=== PATIENT | male | born 1960 | race Two or more races ===

== ENCOUNTER 2023-01-25 09:00 | Inpatient (IN) | payer OTHER ==
[~2023-01-25] VITALS: Ht 180.3 cm; Wt 108.9 kg
[2023-01-25] MEDS ORDERED: [UNRECOGNIZED DRUG - CODE] PO (12:48)
[2023-01-25] MEDS ORDERED: NEXIUM20 M1 PO (12:48)
[2023-01-25] MEDS ORDERED: [UNRECOGNIZED DRUG - OTHER] PO (12:49)
[2023-01-25] MEDS ORDERED: PAXIL40 MG PO (12:49)
[2023-01-25] MEDS ORDERED: TRAZODONE HCL150 MG PO (12:50)
[2023-01-25] MEDS ORDERED: XALATAN (12:51)
[2023-01-25] MEDS ORDERED: GABA PO (12:51)
[2023-02-01] MEDS ORDERED: GABAPENTIN800 M1 (13:03)
[2023-02-01] MEDS ORDERED: DIAZEPAM10 MG (13:03)
[2023-02-01] MEDS ORDERED: AMLODIPINE BESY10 MG (13:04)
[2023-02-01] MEDS ORDERED: HYDRALAZINE HCL25 MG (13:06)
[2023-02-01] MEDS ORDERED: XELPROS2.5 ML (13:07)
== END 2023-02-07 16:06 | disposition home or self-care (01) | DRG 330 ==
LOC: O/R 01-30 08:28 → SURG 01-30 08:28 → SURH 01-30 09:00 → EDBD 01-30 09:00 → SURH 01-30 18:00 → SURG 01-30 20:19 → SURH 02-01 15:03
PROVIDERS: ADMIT Colon & Rectal Surgery; ATTEND Colon & Rectal Surgery
PROC: 0DBP4ZZ Excision of Rectum, Percutaneous Endoscopic Approach (ICD-10-PCS; 2023-01-30)
PROC: 0WQF4ZZ Repair Abdominal Wall, Percutaneous Endoscopic Approach (ICD-10-PCS; 2023-01-30)
PROC: 0DQN4ZZ Repair Sigmoid Colon, Percutaneous Endoscopic Approach (ICD-10-PCS; 2023-01-30)
PROC: 0DJD8ZZ Inspection of Lower Intestinal Tract, Via Natural or Artificial Opening Endoscopic (ICD-10-PCS; 2023-01-30)
PROC: 3E0F7SF Introduction of Other Gas into Respiratory Tract, Via Natural or Artificial Opening (ICD-10-PCS; 2023-01-30)
PROC: 0DTN4ZZ Resection of Sigmoid Colon, Percutaneous Endoscopic Approach (ICD-10-PCS; principal; 2023-01-30 18:00)
PROC: 4A12X4Z Monitoring of Cardiac Electrical Activity, External Approach (ICD-10-PCS; 2023-01-31)
PROC: 30233N1 Transfusion of Nonautologous Red Blood Cells into Peripheral Vein, Percutaneous Approach (ICD-10-PCS; 2023-02-01)
DX: K57.20 Diverticulitis of large intestine with perforation and abscess without bleeding (principal); K94.09 Other complications of colostomy; K43.2 Incisional hernia without obstruction or gangrene; K66.0 Peritoneal adhesions (postprocedural) (postinfection); D64.89 Other specified anemias; R33.8 Other retention of urine; R00.0 Tachycardia, unspecified; R06.81 Apnea, not elsewhere classified; I11.9 Hypertensive heart disease without heart failure; F41.8 Other specified anxiety disorders; F41.0 Panic disorder [episodic paroxysmal anxiety]; Z87.891 Personal history of nicotine dependence